=== PATIENT | male | born 1980 | race Caucasian/White ===

== ENCOUNTER → 2017-02-20 | Outpatient (CLI) | payer MEDICAID ==
[~2017-02-20] VITALS: Ht 182.9 cm; Wt 95.3 kg
== END | disposition home or self-care (01) ==
LOC: Rad HDHVI 09:19
PROVIDERS: ATTEND Internal Medicine Cardiovascular Disease
DX: I20.9 Angina pectoris, unspecified (principal); E78.00 Pure hypercholesterolemia, unspecified; E78.5 Hyperlipidemia, unspecified; F17.210 Nicotine dependence, cigarettes, uncomplicated; Z82.49 Family history of ischemic heart disease and other diseases of the circulatory system
CPT/HCPCS: 78452; 93017; 96374; A9500

== ENCOUNTER → 2017-04-01 | Outpatient (CLI) | payer MEDICAID ==
[2017-04-01 09:55] VITALS: BP 129/81
[2017-04-01 10:30] VITALS: BP 130/80
[2017-04-01 12:14] LABS: Basophils # (auto) 0 uL; Basophils % (auto) 0.4 % (0.0-2.0); CONDITION Y; Eosinophils # (auto) 0.4 uL; Eosinophils % (auto) 4.9 % (0.0-7.0); Hematocrit 43.1 % (41.0-53.0); Hemoglobin 14.5 g/dL (13.5-17.5); Lymphocytes # (auto) 1.8 uL; Lymphocytes % (auto) 25.4 % (10.0-50.0); Mean Corpuscular Hemoglobin 28.3 pg (28.0-32.0); Mean Corpuscular Hgb Conc. 33.7 g/dL (32.0-36.0); Mean Corpuscular Volume 83.9 fL (80.0-100.0); Mean Platelet Volume 9.6 fL (7.4-10.4); Monocytes # (auto) 0.4 uL; Neutrophils # (auto) 4.6 uL; Neutrophils % (auto) 63.3 % (37.0-80.0); Platelet Count (auto) 225 10^3/uL (140-450); Red Cell Distribution Width 14.1 % (11.6-16.0); White Blood Cell 7.2 10^3/uL (4.4-10.8)
[2017-04-01 12:27] LABS: INR 0.95 (0.9-1.15); Partial Thromboplastin Time 26.8 sec (22.64-33.71); Prothrombin Time 10.3 sec (9.37-12.3)
[2017-04-01 12:53] LABS: BUN/Creatinine Ratio 11.8; Calcium 8.8 mg/dL (8.5-10.1); Potassium 4.4 mmol/L (3.5-5.1)
== END | disposition home or self-care (01) ==
LOC: Rad HDHVI 09:18
PROVIDERS: ATTEND Internal Medicine Cardiovascular Disease
DX: Z01.812 Encounter for preprocedural laboratory examination (principal); I10 Essential (primary) hypertension; D64.9 Anemia, unspecified; R79.1 Abnormal coagulation profile; R07.9 Chest pain, unspecified
CPT/HCPCS: 36415; 71020; 80048; 85025; 85610; 85730; G0463; 93005

== ENCOUNTER 2017-04-29 11:17 | Inpatient (IN) | payer MEDICAID ==
[~2017-04-29] VITALS: Ht 182.9 cm; Wt 98.0 kg
[2017-04-29 12:22] LABS: Basophils # (auto) 0 uL; Basophils % (auto) 0.7 % (0.0-2.0); CONDITION Y; Eosinophils # (auto) 0.2 uL; Eosinophils % (auto) 4.4 % (0.0-7.0); Hematocrit 42.8 % (41.0-53.0); Hemoglobin 14.4 g/dL (13.5-17.5); Lymphocytes # (auto) 1.9 uL; Mean Corpuscular Hemoglobin 28.3 pg (28.0-32.0); Mean Corpuscular Hgb Conc. 33.8 g/dL (32.0-36.0); Mean Corpuscular Volume 83.7 fL (80.0-100.0); Mean Platelet Volume 8.5 fL (7.4-10.4); Monocytes # (auto) 0.4 uL; Monocytes % (auto) 6.4 % (0.0-12.0); Neutrophils # (auto) 2.9 uL; Neutrophils % (auto) 53.5 % (37.0-80.0); Platelet Count (auto) 234 10^3/uL (140-450); Red Cell Distribution Width 13.9 % (11.6-16.0); White Blood Cell 5.5 10^3/uL (4.4-10.8)
[2017-04-29 12:40] LABS: INR 1.01 (0.9-1.15)
[2017-04-29] MEDS ORDERED: IODIXANOL 320MG/ML 100ML BTL IV ONE ×2 (12:44→13:14)
[2017-04-29] MEDS ORDERED: LIDOCAINE 2%HCL (LOCAL ANESTH.) INJ 20ML MDV ONE (12:44)
[2017-04-29 12:55] LABS: BUN/Creatinine Ratio 15.4; Calcium 8.5 mg/dL (8.5-10.1)
[2017-04-29] MEDS ORDERED: fentaNYL CITRATE 100 MCG/2 ML VL ONE (13:09)
[2017-04-29] MEDS ORDERED: MIDAZOLAM HCL 1MG/1ML-2 ML VIAL ONE (13:09)
[2017-04-29] MEDS ORDERED: ANGIOMAX 250 MG VIAL IV ONE (13:11)
[2017-04-29] MEDS ORDERED: SODIUM CHL 0.9% 50 ML ONE (13:11)
[2017-04-29] MEDS ORDERED: TICAGRELOR 90 MG TAB ONE (14:25)
[2017-04-29] MEDS ORDERED: SODIUM CHLORIDE 0.9% 1,000 ML IV SCH (14:58)
[2017-04-29] MEDS ORDERED: ACETAMINOPHEN 500 MG TAB PO PRN (15:00)
[2017-04-29] MEDS ORDERED: ONDANSETRON HCL 4 MG/2 ML VIAL IV PRN (15:00)
[2017-04-29] MEDS ORDERED: ZOLPIDEM TARTRATE 5 MG TAB PO PRN (15:00)
[2017-04-29] MEDS ORDERED: MORPHINE SULF INJ 2 MG/ML SYRINGE 1ML IV PRN (15:00)
[2017-04-29] MEDS ORDERED: NITROGLYCERIN 0.4 MG SL TAB SL PRN (15:00)
[2017-04-29] MEDS ORDERED: RANO500T2 PO (15:06)
[2017-04-29] MEDS ORDERED: OMEP20CA74 PO (15:06)
[2017-04-29] MEDS ORDERED: ATOR20TA50 PO (15:06)
[2017-04-29] MEDS ORDERED: ASPI81CH43 PO (15:06)
[2017-04-29] MEDS ORDERED: OMEPRAZOLE 20MG/10ML ORAL SUSP PO PRN (15:15)
[2017-04-29] MEDS ORDERED: TICAGRELOR 90 MG TAB PO ONE (15:15)
[2017-04-29] MEDS ORDERED: NICOTINE 21MG/24 HR TOPICAL PATCH TD ONE (18:45)
[2017-04-29] MEDS: TICAGRELOR 90 MG TAB PO SCH (20:49)
[2017-04-29] MEDS: RANOLAZINE ER 500 MG TAB PO SCH (20:49)
[2017-04-29] MEDS: HYDROcodone-ACET 5/325MG TAB PO PRN (20:49)
[2017-04-29 21:53] VITALS: BP 145/76
[2017-04-30] MEDS: HYDROcodone-ACET 5/325MG TAB PO PRN ×3 (04:33→16:54)
[2017-04-30 05:02] VITALS: BP 140/80
[2017-04-30 08:56] VITALS: BP 126/78
[2017-04-30] MEDS: TICAGRELOR 90 MG TAB PO SCH ×2 (09:17→22:16)
[2017-04-30] MEDS: RANOLAZINE ER 500 MG TAB PO SCH ×2 (09:17→22:16)
[2017-04-30] MEDS ORDERED: NICOTINE 21MG/24 HR TOPICAL PATCH TD SCH (10:00)
[2017-04-30] MEDS ORDERED: ATORVASTATIN 20 MG TAB PO SCH (10:00)
[2017-04-30] MEDS ORDERED: ASPirin 81 mg TAB PO SCH (10:00)
[2017-04-30 13:00] VITALS: BP 122/84
[2017-04-30 16:47] VITALS: BP 125/74
== END 2017-04-30 22:01 | disposition home or self-care (01) | DRG 174 ==
LOC: CATH 11:17 → TELE-EAST 11:18 → UNDODISIN 04-30 15:35
PROVIDERS: ADMIT Internal Medicine Cardiovascular Disease; ATTEND Internal Medicine Cardiovascular Disease
PROC: 027135Z Dilation of Coronary Artery, Two Arteries with Two Drug-eluting Intraluminal Devices, Percutaneous Approach (ICD-10-PCS; principal; 2017-04-29)
PROC: 4A023N7 Measurement of Cardiac Sampling and Pressure, Left Heart, Percutaneous Approach (ICD-10-PCS; 2017-04-29)
PROC: 02703ZZ Dilation of Coronary Artery, One Artery, Percutaneous Approach (ICD-10-PCS; 2017-04-29)
PROC: B2111ZZ Fluoroscopy of Multiple Coronary Arteries using Low Osmolar Contrast (ICD-10-PCS; 2017-04-29)
DX: I21.4 Non-ST elevation (NSTEMI) myocardial infarction (principal); I10 Essential (primary) hypertension; E78.5 Hyperlipidemia, unspecified; I25.10 Atherosclerotic heart disease of native coronary artery without angina pectoris; F17.200 Nicotine dependence, unspecified, uncomplicated; I25.110 Atherosclerotic heart disease of native coronary artery with unstable angina pectoris
CPT/HCPCS: 36415; 80048; 85025; 85610; 92920; 92928; 93458; 99152; C1874; C1887; J2250; Q9967

== ENCOUNTER → 2017-05-09 | Outpatient (CLI) | payer MEDICAID ==
[~2017-05-09] MED LIST: ASPI81CH43 PO; ATOR20TA50 PO; OMEP20CA74 PO; RANO500T2 PO
[2017-05-09 11:00] VITALS: BP 129/89
[2017-05-09 12:25] VITALS: BP 132/84
== END | disposition home or self-care (01) ==
LOC: Rad HDHVI 12:08
PROVIDERS: ATTEND Internal Medicine Cardiovascular Disease
DX: I71.4 Abdominal aortic aneurysm, without rupture (principal)
CPT/HCPCS: 93926; G0463

== ENCOUNTER → 2017-08-18 | Outpatient (CLI) | payer MEDICAID ==
[~2017-08-18] VITALS: Ht 182.9 cm; Wt 93.0 kg
== END | disposition home or self-care (01) ==
LOC: Rad HDHVI 14:17
PROVIDERS: ATTEND Internal Medicine Cardiovascular Disease
DX: I25.5 Ischemic cardiomyopathy (principal); J44.9 Chronic obstructive pulmonary disease, unspecified; E78.00 Pure hypercholesterolemia, unspecified; I25.2 Old myocardial infarction
CPT/HCPCS: 78452; 93017; 93306; 96374; A9500

== ENCOUNTER → 2018-11-02 | Outpatient (CLI) | payer MEDICAID ==
[~2018-11-02] VITALS: Ht 182.9 cm; Wt 94.3 kg
== END | disposition home or self-care (01) ==
LOC: Rad HDHVI 14:05
PROVIDERS: ATTEND Internal Medicine Cardiovascular Disease
DX: I35.1 Nonrheumatic aortic (valve) insufficiency (principal); E78.1 Pure hyperglyceridemia; F17.209 Nicotine dependence, unspecified, with unspecified nicotine-induced disorders; I25.10 Atherosclerotic heart disease of native coronary artery without angina pectoris; I11.9 Hypertensive heart disease without heart failure; Z98.61 Coronary angioplasty status
CPT/HCPCS: 78452; 93017; 93306; 96374; A9500